=== PATIENT | male | born 1970 | race Two or more races ===

== ENCOUNTER 2024-03-12 13:15 | Outpatient (RCR) | payer MEDICAID, SELFPAY | END 2024-04-05 23:59 | disposition home or self-care (01) | LOC: SCTC 13:15 | PROVIDERS: PCP Specialist; Referring Provider Specialist; Visit Provider Nurse Practitioner Family | DX: D75.1 Secondary polycythemia (principal); I10 Essential (primary) hypertension; M10.9 Gout, unspecified; E66.3 Overweight; Z68.26 Body mass index [BMI] 26.0-26.9, adult; E78.5 Hyperlipidemia, unspecified; Z86.19 Personal history of other infectious and parasitic diseases | CPT/HCPCS: 99195 ==

== ENCOUNTER 2024-04-21 10:24 | Outpatient (RCR) | payer MEDICAID, SELFPAY ==
--- NOTE | 2024-05-04 23:35 | CTCFLWUP_ITS ---
Patient: NAYELY METZGER : 1970 Page 2 of 4 FOLLOW UP NOTE DATE OF SERVICE: 04/21/2024 NAME: NAYELY METZGER ACCOUNT: [id number] : 1970 AGE: 54 HISTORY OF PRESENT ILLNESS: PREVIOUS NOTE: Nayely Metzger is a 54-year-old ENG speaking [place] male with history of hypertensio n, gout, history of valley fever and hyperlipidemia is referred to hematology clinic for erythrocytos is. Mr. Metzger states that he was diagnosed with erythrocytosis about 20 years ago. He has been sanjana ting blood 3-4 times a year at blood bank for last 20 years. He never had any work-up done to evalua te the cause of erythrocytosis. Mr. Metzger also denies any family history of erythrocytosis. He neve r had any complications. Never had any significant headaches, strokes or heart attacks. 12/28/2022: RBC 6.43, hemoglobin 17.5, hematocrit 56.4, MCV 88, WBC 6.9, platelets 234,000, absolute n eutrophil count is 3.5, creatinine 0.91 T. bili 2.0, AST 17, ALT 13. 02/12/2023: JAK2 negative, MPN panel negative, erythropoietin level 4.4 02/21/2023: Therapeutic phlebotomy 03/19/2023: Therapeutic phlebotomy 04/10/2023: RBC 5.03, hemoglobin 13.6, hematocrit 42.1, MCV 84, WBC 6.6, platelets 241,000, ANC 3.6 04/17/2023: RBC 5.23, hemoglobin 13.8, hematocrit 43.5, MCV 83, WBC 6.2, platelets 238,000, ANC 3.6 04/24/2023: RBC 5.30, hemoglobin 13.9, hematocrit 43.9, MCV 83, WBC 6.6, platelets 241,000, ANC 3.9 05/15/2022: RBC 5.54, hemoglobin 13.9, hematocrit 44.8, MCV 81, WBC 7.9, platelets 249,000, ANC 4.4 05/28/2023: RBC 5.58, hemoglobin 13.7, hematocrit 44.8, MCV 80, WBC 6.6, platelets 237,000, ANC 4.0 06/11/2023: RBC 5.64, hemoglobin 13.6, hematocrit 44.3, MCV 79, WBC 6.5, platelets 251,000, ANC 3.2 06/26/2023: RBC 5.64, hemoglobin 13.5, hematocrit 43.3, MCV 77, WBC 6.9, platelets 247,000, ANC 3.3 08/17/2023: RBC 5.72, hemoglobin 14.0, hematocrit 43.8, MCV 77, WBC 6.8, platelets 224,000, ANC 3.6 09/12/2023: RBC 5.68, hemoglobin 14.0, hematocrit 44.6, MCV 79, WBC 7.0, platelets 254,000, ANC 4.1 11/16/2023: RBC 5.80, hemoglobin 14.9, hematocrit 46.2, MCV 80, WBC 5.0, platelets 235,000, ANC 3.3 11/22/2023: RBC 5.48, hemoglobin 13.8, hematocrit 43.3, MCV 79, WBC 8.2, platelets 204,000, ANC 4.8 12/17/2023: RBC 5.75, hemoglobin 14.3, hematocrit 48.4, MCV 84, WBC 5.0, platelets 242,000, ANC 2.2 01/01/2024: Therapeutic phlebotomy 01/14/2024: RBC 5.21, hemoglobin 13.6, hematocrit 44.1, MCV 85, WBC 6.0, platelets 292,000, ANC 3.1 02/15/2024: RBC 5.47, hemoglobin 13.7, hematocrit 46.7, MCV 85, WBC 6.4, platelets 200,000, ANC 3.5 OTHER MEDICAL HISTORY/CONDITIONS: HTN Hyperlipidemia Gout Valley Fever - 2016 Erythrocytosis Angiogram?- ?Clone Other Med Hx? FAMILY HISTORY: Cancer?History:?Denies Patient?denies?family?cancer?history. ?Clone Family Hx? SOCIAL HISTORY: Occupational History: driver/refuse collector - Disabled Education Level: Completed High School Marital Status: Tobacco Use: Denies ETOH Use: Beer/Hard liquor 4 x / week - x 20yrs Drug Note: Denies Social History Note: Lives with cousin MEDICATIONS: 1. allopurinol - 300 mg 1 tab Daily 2. aspirin - 81 mg 1 tab Daily 3. atenolol - 50 mg 1 tab Daily 4. citalopram - 10 mg 1 tab Daily 5. indomethacin - 25 mg Capsule As directed 6. lisinopril-hydrochlorothiazide - 20-25 mg 1 tab Daily 7. rosuvastatin - 20 mg 1 tab Daily?Palabra Meds? Medications Last Reconciled by Davina Olson MA on 04/21/2024 ALLERGIES: No Known Drug Allergies REVIEW OF SYSTEMS: A complete 14-point review of systems was performed and is negative except as noted in interval histo ry. PHYSICAL EXAMINATION: VITAL SIGNS: Temperature?99.3, B/P?157/102, Oxygen?Saturation?98% Weight?155?lbs PAIN: 0 - No pain ECOG Performance Status: 0 - Asymptomatic and fully active GENERAL APPEARANCE: Appears well, in no apparent distress, appropriately interactive. HEENT: Normocephalic, no temporal wasting, normal conjunctiva, no scleral icterus, normal hearing, li ps without lesions, neck normal range of motion. CARDIOVASCULAR: Not assessed. PULMONARY: Normal respiratory effort, no respiratory distress or use of accessory muscles, speaking i n full sentences, no tachypnea. EXTREMITIES: No pedal edema or cyanosis. SKIN: Normal skin appearance. NEUROLOGIC: Alert and oriented x4. PSHYCHIATRIC: Appropriate affect, mood normal, behavior normal, intact thought and speech. LABORATORY DATA: I have personally reviewed and interpreted each of the patient?s relevant lab tests, abnormal finding s are below: Date 03/05/24 ??GLUCOSE,RANDOM?(mg/dL) 104 ??BLOOD?UREA?NITROGEN?(mg/dL) 15 ??CREATININE?(mg/dL) 1.00 ??SODIUM?(mmol/L) 137 ??POTASSIUM?(mmol/L) 4.1 ??CHLORIDE?(mmol/L) 104 ??CrCl?(CandG)?(ml/min) 83.44 ??AST/SGOT?(Unit/L) 16 ??ALT/SGPT?(Unit/L) 15 ??ALKALINE?PHOSPHATASE?(Unit/L) 53 ??BILIRUBIN,?TOTAL?(mg/dL) 1.7?H ??PROTEIN?TOTAL?(gm/dl) 6.9 ??ALBUMIN,?SERUM?(gm/dl) 4.3 ??GLOBULIN?(gm/dl) 2.6 ??ALBUMIN/GLOBULIN?RATIO 1.7 ??CALCIUM,?SERUM?(mg/dL) 9.6 ??CALCIUM?SERUM?(CORRECTED)?(mg/dL) 9.6 ASSESSMENT/PLAN: Erythrocytosis JAK2 was negative MPN panel negative Erythropoietin level low at 4.4 No supplements including testosterone Patient likely have DENISHA, sleep study is pending ORDERS: Phlebotomy to give hematocrit less than 45 CBC CMP RETURN TO CLINIC: I will see him back in the clinic in 3 months. BILLING AND COMPLIANCE: I reviewed external records from providers outside my specialty as summarized above. I spent a total of 50 minutes on this patient?s care on the day of their visit excluding time spent related to any bi lled procedures. This time includes time spent with the patient as well as time spent documenting in the medical record, reviewing patients records and tests, obtaining history, placing orders, communi cating with other healthcare professionals, counseling the patient, family or caregiver, and/or care coordination for the diagnoses above. Electronically Signed by: Sreedhar Perez MD T: 11:33 PM CC: Vivek?DRAKE Phoenix PCP: Vivek Phoenix Referring: Vivek Phoenix This document was completed utilizing speech recognition software. Grammatical errors, random word in sertions, pronoun errors, and incomplete sentences are an occasional consequence of this system due t o software limitations, ambient noise, and hardware issues. Any formal questions or concerns about th e content, text or information contained within the body of this dictation should be directly address ed to the provider for clarification.
== END 2024-05-06 23:59 | disposition home or self-care (01) ==
LOC: SCTC 10:24
PROVIDERS: PCP Specialist; Referring Provider Specialist; Visit Provider Nurse Practitioner Family
DX: D75.1 Secondary polycythemia (principal)
CPT/HCPCS: 99212; G0463

== ENCOUNTER → 2024-05-01 | Outpatient (CLI) | payer MEDICAID, SELFPAY ==
--- NOTE | 2024-05-01 14:00 | XR_ITS ---
Examination: CT chest with intravenous contrast CT abdomen with intravenous contrast CT pelvis with intravenous contrast 2-D coronal and sagittal reconstructions Time of exam: May 01, 2024 1543 hours INDICATIONS: Elevated erythropoietin level CTDI: vol (mGy) : 8.25 DLP: (mGycm): 643 Technique: Multiple axial images of the chest, abdomen and pelvis with intravenous contrast, 3.0 mm slice thickness. Images obtained post intravenous injection Isovue 370 60 cc. 2-D sagittal and coronal reconstructions. Low dose protocols were performed. One or more of the following dose reduction techniques were used; automated exposure control, adjustment of the mA and/or KV according to patient size, use of iterative reconstruction technique. Findings: No thoracic aortic aneurysm dilatation No pulmonary artery emboli on this non-CTA study No paratracheal tracheobronchial or bronchopulmonary adenopathy No pneumonia or pulmonary edema or pleural disease No focal liver or splenic lesions Cholelithiasis No pancreatic mass No adrenal mass No renal or ureteral calculi, no hydronephrosis Aorta normal size Normal appendix No abdominal or pelvic lymphadenopathy No diverticulitis Urinary bladder intact Transverse prostate dimension 4.0 cm Mild osteopenia IMPRESSION: No mediastinal lymphadenopathy No pneumonia, pulmonary edema, pleural disease or pulmonary nodules No abdominal or pelvic mass
== END | disposition home or self-care (01) ==
LOC: SCAT 13:29
PROVIDERS: Referring Provider Nurse Practitioner Family; Visit Provider Nurse Practitioner Family
DX: D75.0 Familial erythrocytosis (principal)
CPT/HCPCS: 71260; 74177; A4649; Q9967

== ENCOUNTER 2024-06-24 10:26 | Outpatient (RCR) | payer MEDICAID, SELFPAY | END 2024-07-04 23:59 | disposition home or self-care (01) | LOC: SCTC 10:26 | PROVIDERS: PCP Specialist; Referring Provider Nurse Practitioner Family; Visit Provider Nurse Practitioner Family | DX: D75.1 Secondary polycythemia (principal) | CPT/HCPCS: 99212; G0463 ==

== ENCOUNTER 2024-10-09 09:55 | Outpatient (RCR) | payer MEDICAID, SELFPAY | END 2024-11-03 23:59 | disposition home or self-care (01) | LOC: SCTC 09:55 | PROVIDERS: PCP Specialist; Referring Provider Specialist; Visit Provider Nurse Practitioner Family | DX: D75.1 Secondary polycythemia (principal); I10 Essential (primary) hypertension | CPT/HCPCS: 99212; G0463 ==